=== PATIENT | female | born 1995 | race Caucasian/White ===

== ENCOUNTER 2024-03-28 07:33 | Emergency (ER) | payer BC, SELFPAY ==
--- NOTE | ~2024-03-28 | CT_ITS ---
EXAMINATION: CT abdomen pelvis w con DATE: 03/28/2024 11:01 INDICATION: Lower abdominal pain TECHNIQUE: Computed tomography (CT) of the abdomen and pelvis was performed with 100 mL Omnipaque-350 intravenous contrast. Automated exposure control and iterative reconstruction technique were employe d. The dose-length product was 882.71 mGy-cm. COMPARISON: None FINDINGS: Minimal dependent atelectasis in bilateral lower lobes. Heart size is normal. No pericardial or pleur al effusion. Liver, gallbladder, spleen, pancreas, bilateral adrenal glands and kidneys are normal. B owels including the appendix are normal. There is a small amount of free fluid in the pelvis of sligh tly higher than simple fluid attenuation which could represent accommodation physiologic fluid and sm all amount of pneumoperitoneum potentially related to a ruptured and partially collapsed 3.2 x 2.0 cm peripherally enhancing right ovarian corpus luteum cyst. Right ovary, the uterus and bladder are nor mal. No evident active contrast extravasation. No pathologically enlarged abdominal or pelvic lymphad enopathy. Bones are unremarkable. IMPRESSION: 1. Small amount of fluid in the deep pelvis of slightly greater than simple fluid attenuation likely combination of physiologic free fluid and minimal blood, likely related to rupture of a right ovarian corpus luteum cyst. Reviewed, dictated and finalized at location A. IMPRESSION: 1. Small amount of fluid in the deep pelvis of slightly greater than simple flu id attenuation likely combination of physiologic free fluid and minimal blood, likely related to rupture of a right ovarian corpus luteum cyst.
[2024-03-28 07:35] VITALS: BP 141/99; PULSE 95; RESP 16; TEMP 36.6; O2SAT 97
--- NOTE | 2024-03-28 09:29 | ED.ABDPAIN ---
HPI - Abdominal Pain General Chief Complaint: Abdominal Pain Stated Complaint: N/V/D X2D Time Seen by Provider: 03/28/24 09:12 History of Present Illness HPI narrative: 28-year-old female presents to the emergency room for evaluation of abdominal pain associated with multiple episodes of nonbilious nonbloody vomiting and diarrhea. States she has been experiencing symptoms for couple of days. Denies any fevers. States took [id number] anti emetic with no improvement of her symptoms. denies dysuria. Describes the pain as a throbbing sensation it does not radiate. Related Data Allergies Allergy/AdvReac Type Severity Reaction Status Date / Time Penicillins Allergy Hives Verified 03/28/24 10:04 Review of Systems Review of Systems: ROS unremarkable except for noted in HPI Exam Narrative: GENERAL: Well-appearing, well-nourished, no physical limitations, and in no acute distress. HEAD: Normocephalic, atraumatic. EYES: Conjunctivae normal, PERRLA and EOMI. CHEST: Clear to auscultation. No respiratory distress. No wheezes rales or rhonchi. HEART: Regular rate and rhythm. No murmur heard. Normal peripheral pulses. ABDOMEN: Soft, periumbilical tenderness, nondistended, normal active bowel sounds. BACK: No CVA tenderness; EXTREMITIES: Normal range of motion. No edema. No clubbing or cyanosis SKIN: Warm, dry, no rash. No noted wounds NEURO: No focal deficits. Alert and oriented x3. MAEW. CN's II-XI intact bilaterally, normal gait PSYCH: Cooperative. Normal mood and affect. Course Vital Signs Vital signs: Vital Signs Temperature 36.6 C 03/28/24 07:35 Pulse Rate 95 03/28/24 07:35 Respiratory Rate 16 03/28/24 07:35 Blood Pressure 141/99 H 03/28/24 07:35 Pulse Oximetry 97 03/28/24 07:35 Oxygen Delivery Room Air 03/28/24 07:35 Temperature 36.6 C 03/28/24 07:35 Pulse Rate 95 03/28/24 07:35 Respiratory Rate 16 03/28/24 07:35 Blood Pressure 141/99 H 03/28/24 07:35 Pulse Oximetry 97 03/28/24 07:35 Oxygen Delivery Room Air 03/28/24 07:35 MDM - Abdominal Pain Lab Data 03/28/24 09:59 03/28/24 09:59 Labs: Lab Results 03/28/24 03/28/24 Range/Units 09:58 09:59 WBC 18.7 H (4.5-10.0) K/mm3 RBC 4.87 (4.2-5.4) M/mm3 Hgb 14.1 (12.0-15.0) g/dL Hct 43.3 (37.0-47.0) % MCV 88.9 (80-100) fl MCH 29.0 (26-34) pg MCHC 32.6 (32-36) g/dl RDW 11.9 (11.5-14.5) % Plt Count 295 (150-375) k/mm3 MPV 9.4 (7.4-10.4) fl Immature Gran % (Auto) 0.4 (0-0.5) % Neut % (Auto) 86.1 H (45.5-73.1) % Lymph % (Auto) 8.3 L (18.3-44.2) % Mcleod % (Auto) 3.9 (2.6-8.5) % Eos % (Auto) 1.1 (0-4.4) % Baso % (Auto) 0.2 (0.2-1.2) % Lymph # (Auto) 1.55 (0.9-3.2) K/mm3 Mcleod # (Auto) 0.7 H (0.1-0.6) K/mm3 Eos # (Auto) 0.2 (0-0.3) K/mm3 Baso # (Auto) 0.0 (0.0-0.1) K/mm3 Abs Immat Gran (auto) 0.08 H (0.00-0.031) K/mm3 Absolute Neuts (auto) 16.1 H (1.3-6.7) K/mm3 Absolute Nucleated RBC 0.000 (0.0-0.012) K/mm3 Nucleated RBC % 0.0 (0.0-0.2) % Sodium 136 L (137-145) mmol/L Potassium 4.0 (3.4-5.0) mmol/L Chloride 103 (98-107) mmol/L Carbon Dioxide 27 (22-30) mmol/L Anion Gap 6 (4-12) mmol/L BUN 11 (7-17) mg/dL Creatinine 0.60 L (0.7-1.0) mg/dL Estim Creat Clear Calc 118 ml/min Estimated GFR > 60 (59 - ) Glucose 93 (65-110) mg/dL Calcium 8.6 (8.4-10.2) mg/dL Total Bilirubin 0.4 (0.2-1.3) mg/dL AST 19 (14-36) U/L ALT 12 (6-35) U/L Alkaline Phosphatase 46 (38-126) U/L Total Protein 6.0 L (6.3-8.2) g/dL Albumin 3.8 (3.5-5.1) g/dL Lipase 39 (23-300) U/L Urine Color Yellow (Yellow) Urine Appearance Cloudy H (Clear) Urine pH 6.0 (5.0-9.0) Ur Specific [place] 1.029 (1.001-1.035) Urine Protein Trace (Negative) mg/dL Urine Glucose (UA) Negative (Negative) mg/dL Urine Ketones Trace H (Nega
[2024-03-28] MEDS: ONDANSETRON INJ 4 MG/2 ML VIAL IV PUSH (09:55)
[2024-03-28] MEDS: SODIUM CHLORIDE 0.9% IV 1,000 ML 999 ML IV CONT (09:56)
[2024-03-28 10:08] LABS: Basophils Percent Auto 0.2 % (0.2-1.2); Eosinophils Absolute Auto 0.2 K/mm3 (0-0.3); Eosinophils Percent Auto 1.1 % (0-4.4); Hematocrit 43.3 % (37.0-47.0); Hemoglobin 14.1 g/dL (12.0-15.0); Immature Granulocyte Absolute 0.08 K/mm3 (0.00-0.031); Immature Granulocyte Percent A 0.4 % (0-0.5); Lymphocytes Absolute Auto 1.55 K/mm3 (0.9-3.2); Lymphocytes Percent Auto 8.3 % (18.3-44.2); Mean Corpuscular HGB Conc 32.6 g/dl (32-36); Mean Corpuscular Volume 88.9 fl (80-100); Mean Platelet Volume 9.4 fl (7.4-10.4); Monocytes Absolute Auto 0.7 K/mm3 (0.1-0.6); Monocytes Percent Auto 3.9 % (2.6-8.5); Neutrophils Absolute Auto 16.1 K/mm3 (1.3-6.7); Neutrophils Percent Auto 86.1 % (45.5-73.1); Platelet Count Result 295 k/mm3 (150-375); Red Blood Count 4.87 M/mm3 (4.2-5.4); Red Cell Distribution Width 11.9 % (11.5-14.5); White Blood Count 18.7 K/mm3 (4.5-10.0)
[2024-03-28 10:12] LABS: Appearance Urine Cloudy (Clear); Bacteria Urine 4+ /hpf; Bilirubin Urine Negative (Negative); Blood Urine Negative (Negative); Color Urine Yellow (Yellow); Glucose Urine UA Negative (Negative); Ketones Urine Trace mg/dL (Negative); Leukocyte Esterase Ur 1+ LEU/UL (Negative); Nitrate Urine Negative (Negative); Non Pathogenic Casts 0-2; Protein Urine Trace mg/dL (Negative); Specific Grav Ur 1.029 (1.001-1.035); Squamous Epithelial Cell Urine Few /hpf (Few); Urobilinogen Urine 0.2 mg/dL (<2.0)
[2024-03-28 10:18] LABS: Add Urine Microscopic? YES
[2024-03-28 10:23] LABS: Alanine Aminotransferase 12 U/L (6-35); Albumin Level 3.8 g/dL (3.5-5.1); Alkaline Phosphatase 46 U/L (38-126); Anion Gap 6 mmol/L (4-12); Aspartate Amino Transferase 19 U/L (14-36); Bilirubin,Total 0.4 mg/dL (0.2-1.3); Blood Urea Nitrogen 11 mg/dL (7-17); Calcium 8.6 mg/dL (8.4-10.2); Carbon Dioxide 27 mmol/L (22-30); Chloride 103 mmol/L (98-107); Estimated CRCL calculation 118 ml/min; Estimated Glomerular Filt Rate > 60; Glucose 93 mg/dL (65-110); Lipase 39 U/L (23-300); Sodium 136 mmol/L (137-145)
[2024-03-28 12:00] VITALS: BP 100/67; PULSE 90; RESP 16; O2SAT 99
== END 2024-03-28 12:23 | disposition home or self-care (01) ==
PROVIDERS: Emergency Provider Nurse Practitioner Family
DX: N39.0 Urinary tract infection, site not specified (principal); N83.11 Corpus luteum cyst of right ovary
CPT/HCPCS: 36415; 74177; 80053; 81001; 81025; 83690; 85025; 87086; 96361; 96374; 99284; J2405; J7030; Q9967